=== PATIENT | female | born 1980 | race American Indian/Alaskan Native ===

== ENCOUNTER 2018-11-18 16:27 | Emergency (ER) | payer SELFPAY ==
--- NOTE | 2018-11-18 16:36 | Emergency Department Report ---
Blank Doc - Documentation Documentation: This is a 38-year-old female that presents with acute headache. Also has right hip pain with radiation to right leg. Denies any trauma. This initial assessment/diagnostic orders/clinical plan/treatment(s) is/are subject to change based on patient's health status, clinical progression and re- assessment by fellow clinical providers in the ED. Further treatment and workup at subsequent clinical providers discretion. Patient/guardians urged not to elope from the ED as their condition may be serious if not clinically assessed and managed. Initial orders include: 1- Patient sent to [facility] for further evaluation and treatment 2- CT head
[2018-11-18 16:37] VITALS: BP 126/71
--- NOTE | 2018-11-18 18:01 | Emergency Department Report ---
ED General Adult HPI - General Chief complaint: Headache Stated complaint: HEADACHE/R LEG PAIN Time Seen by Provider: 11/18/18 16:34 Source: patient Mode of arrival: Ambulatory Limitations: No Limitations - History of Present Illness Initial comments: 38-year-old Vietnamese female presents to the emergency room for headache for 5 days. He should also reports that the headache is worse when she yells feels like a band. Patient reports that the pain is worse in the morning. Lying down makes it better. Denies any head trauma. Has been taking ibuprofen 800 mg last dose yesterday. Also complains of right leg throbbing pain is intermittent no swelling, no shortness of breathing. Patient is not a smoker is not on control and has not traveled long distance. Onset/Timin -: days(s) (headache) Location: head, right (thigh), lower extremity Quality: other (throbbing) Improves with: rest Worsens with: other (stress yelling) Associated Symptoms: denies: chest pain, cough, diaphoresis, fever/chills, nausea/vomiting, rash, syncope Treatments Prior to Arrival: NSAID (last dose yesterday) - Related Data Previous Rx's Medication Instructions Recorded Last Taken Type Ibuprofen [Motrin 800 MG tab] 800 mg PO Q8HR PRN #30 tablet 11/18/18 Unknown Rx Prednisone [predniSONE 10 mg 10 mg PO .TAPER #1 tab.ds.pk 11/18/18 Unknown Rx (6-Day Pack, 21 Tabs)] Allergies Allergy/AdvReac Type Severity Reaction Status Date / Time No Known Allergies Allergy Unverified 11/18/18 16:29 ED Review of Systems ROS: Stated complaint: HEADACHE/R LEG PAIN Other details as noted in HPI Comment: All other systems reviewed and negative Constitutional: denies: chills, fever Eyes: denies: eye pain, eye discharge, vision change ENT: denies: ear pain, throat pain Respiratory: denies: cough, shortness of breath, wheezing Cardiovascular: denies: chest pain, palpitations Endocrine: no symptoms reported Gastrointestinal: denies: abdominal pain, nausea, diarrhea Genitourinary: denies: urgency, dysuria, discharge Musculoskeletal: myalgia (right thigh). denies: back pain, joint swelling, arthralgia Skin: denies: rash, lesions Neurological: headache Psychiatric: denies: anxiety, depression Hematological/Lymphatic: denies: easy bleeding, easy bruising ED Past Medical Hx - Past Medical History Previous Medical History?: No - Surgical History Additional Surgical History: C/S x4, wrist - Social History Smoking Status: Never Smoker Substance Use Type: None - Medications Home Medications: Home Medications Medication Instructions Recorded Confirmed Last Taken Type Ibuprofen [Motrin 800 MG tab] 800 mg PO Q8HR PRN #30 tablet 11/18/18 Unknown Rx Prednisone [predniSONE 10 mg 10 mg PO .TAPER #1 tab.ds.pk 11/18/18 Unknown Rx (6-Day Pack, 21 Tabs)] ED Physical Exam - General Limitations: No Limitations General appearance: alert, in no apparent distress - Head Head exam: Present: atraumatic, normocephalic - Eye Eye exam: Present: normal appearance - ENT ENT exam: Present: mucous membranes moist ED Course Vital Signs 11/18/18 11/18/18 16:35 17:25 Temperature 98.4 F Pulse Rate 87 Respiratory 18 17 Rate Blood Pressure 126/71 O2 Sat by Pulse 99 Oximetry ED Medical Decision Making - Radiology Data Radiology results: report reviewed Patient: RACHNA SAXENA MR#: [id number] : 1980 Acct:[id number] Age/Sex: 38 / F ADM Date: 11/18/18 Loc: ED Attending Dr: Ordering Physician: RAOUL WHITFIELD NP Date of Service: 11/18/18 Procedure(s): CT head/brain wo con Accession Number(s): [id number] cc: RAOUL WHITFIELD NP PROCEDURE: CT HEAD/BRAIN WO CON TECHNIQUE: Computerized tomography of the head was performed without contrast material. CT DOSE LENGTH PRODUCT: 920.5 mGycm HISTORY: headache COMPARISONS: None . FINDINGS: No CT evidence of intracranial mass, hemorrhage, acute territorial infarction, or hydrocephalus. Intracranial arteries are symmetric in density. Calvarium is intact. The visualized paranasal sinuses and mastoids are aerated. IMPRESSION: No CT evidence of acute abnormality . This document is electronically signed by Stacie Rodríguez MD., Nov 18 2018 06:24:20 PM ET Transcribed By: [facility] Dictated By: STACIE RODRÍGUEZ M.D. Electronically Authenticated By: STACIE RODRÍGUEZ M.D. Signed Date/Time: 11/18/181825 DD/ 35 TD/TT: 11/18/181735 Critical care attestation.: If time is entered above; I have spent that time in minutes in the direct care of this critically ill patient, excluding procedure time. ED Disposition Clinical Impression: Pain in right thigh Headache Qualifiers: Headache type: tension-type Headache chronicity pattern: acute headache Intractability: intractable Qualified Code(s): G44.201 - Tension-type headache, unspecified, intractable Disposition: DC- TO HOME OR SELFCARE Is pt being admited?: No Does the pt Need Aspirin: No Condition: Stable Additional Instructions: Take medications as prescribed. Follow up with primary care provider I have listed one below for your convenience. Prescriptions: Ibuprofen [Motrin 800 MG tab] 800 mg PO Q8HR PRN #30 tablet PRN Reason: Pain , Severe (7-10) Prednisone [predniSONE 10 mg (6-Day Pack, 21 Tabs)] 10 mg PO .TAPER #1 tab.ds.pk Referrals: DARLEEN RAMIREZ MD [Staff Physician] - 3-5 Days CALVIN CHAPARRO JR, MD [Staff Physician] - 3-5 Days Forms: Work/School Release Form(ED)
--- NOTE | 2018-11-18 18:26 | Cat Scan Report ---
PROCEDURE: CT HEAD/BRAIN WO CON TECHNIQUE: Computerized tomography of the head was performed without contrast material. CT DOSE LENGTH PRODUCT: 920.5 mGycm HISTORY: headache COMPARISONS: None . FINDINGS: No CT evidence of intracranial mass, hemorrhage, acute territorial infarction, or hydrocephalus. Intr acranial arteries are symmetric in density. Calvarium is intact. The visualized paranasal sinuses and mastoids are aerated. IMPRESSION: No CT evidence of acute abnormality . This document is electronically signed by Stacie Rodríguez MD., Nov 18 2018 06:24:20 PM ET
[2018-11-18] MEDS ORDERED: REGLAN IV ONE (18:27)
[2018-11-18] MEDS ORDERED: BENADRYL IV ONE (18:27)
[2018-11-18] MEDS ORDERED: TORADOL IV ONE (18:27)
[2018-11-18 19:27] LABS: HCG Qualitative,Urine Negative (Negative)
[2018-11-18 19:30] LABS: Bilirubin,Urine NEG (Negative); Color,Urine Yellow (Yellow)
[2018-11-18 19:31] LABS: Blood,Urine NEG (Negative); Mucus,Urine FEW /HPF; Protein,Urine <15 mg/dL mg/dL (Negative); Urobilinogen,Urine < 2.0 mg/dL (<2.0); WBC,Urine < 1.0 /HPF (0.0-6.0)
== END 2018-11-18 19:15 | disposition home or self-care (01) ==
LOC: ED 16:27
DX: R51 Headache (principal); M79.651 Pain in right thigh
CPT/HCPCS: 70450; 81001; 81025; 96374; 96375; 99284; J1200; J1885; J2765

== ENCOUNTER 2020-10-06 05:39 | Emergency (ER) | payer MEDICAID ==
[2020-10-06] MEDS ORDERED: ASPIRIN 325 MG TAB PO ONE (05:54)
[2020-10-06 06:23] LABS: Basophils % (Auto) 0.7 % (0.0-1.8); Eosinophils % (Auto) 0.7 % (0.0-4.3); Hematocrit 32.3 % (30.3-42.9); Hemoglobin 10.6 gm/dl (10.1-14.3); Lymphocytes # (Auto) 1.4 K/mm3 (1.2-5.4); Lymphocytes % (Auto) 34.5 % (13.4-35.0); Mean Corpuscular HGB Conc 33 % (30-34); Mean Corpuscular Volume 78 fl (79-97); Monocytes # (Auto) 0.4 K/mm3 (0.0-0.8); Monocytes % (Auto) 10.1 % (0.0-7.3); Platelet Count 380 K/mm3 (140-440); Red Blood Count 4.15 M/mm3 (3.65-5.03); Red Cell Distribution Width 19.1 % (13.2-15.2)
--- NOTE | 2020-10-06 06:43 | XRay Report ---
CHEST 2 VIEWS INDICATION / CLINICAL INFORMATION: chest pain. COMPARISON: None available. FINDINGS: SUPPORT DEVICES: None. HEART / MEDIASTINUM: No significant abnormality. LUNGS / PLEURA: No significant pulmonary or pleural abnormality. No pneumothorax. ADDITIONAL FINDINGS: No significant additional findings. IMPRESSION: 1. No acute findings. Signer Name: Mo Logan MD Signed: 10/06/2020 6:39 AM Workstation Name: [id number]
[2020-10-06 06:48] LABS: Alanine Aminotransferase 11 units/L (7-56); Blood Urea Nitrogen 8 mg/dL (7-17); Calcium 8.8 mg/dL (8.4-10.2); Hemolysis Index 3
[2020-10-06 06:54] LABS: BUN/Creatinine Ratio 16
[2020-10-06] MEDS ORDERED: KETOROLAC 30 MG/1 ML INJ IM ONE (06:54)
--- NOTE | 2020-10-06 06:57 | Emergency Department Report ---
ED Chest Pain HPI - General Chief Complaint: Chest Pain Stated Complaint: CHEST PAIN/LEFT SIDE ARM PAIN Time Seen by Provider: 10/06/20 06:41 Source: patient Mode of arrival: Ambulatory Limitations: No Limitations - History of Present Illness Initial Comments: This is a 40-year-old female who presents to the emergency department with a complaint of some left-sided chest pain with radiation down the left arm that started about 2 hours prior to presentation. She denies any shortness of breath, nausea or vomiting, dizziness, back pain, lower extremity swelling, diaphoresis. Patient also complains of some intermittent left arm paresthesias. She has not taken anything for symptoms prior to presentation. She denies any past medical history. There is no family history of early cardiac disease. No recent travel or sick contacts at home. She denies any tobacco or illicit drug use. No known aggravating or alleviating factors. She currently describes the chest discomfort as a 6 out of 10 in intensity and sharp in nature. Severity scale (0 -10): 7 - Related Data Previous Rx's Medication Instructions Recorded Last Taken Type Ibuprofen [Motrin 800 MG tab] 800 mg PO Q8HR PRN #30 tablet 11/18/18 Unknown Rx Prednisone [predniSONE 10 mg 10 mg PO .TAPER #1 tab.ds.pk 11/18/18 Unknown Rx (6-Day Pack, 21 Tabs)] Ibuprofen [Motrin 800 MG tab] 800 mg PO Q8HR PRN #20 tablet 10/06/20 Unknown Rx Allergies Allergy/AdvReac Type Severity Reaction Status Date / Time No Known Allergies Allergy Verified 10/06/20 06:42 Heart Score - HEART Score History: Slightly suspicious EKG: Normal Age: < 45 Risk factors: No known risk factors Troponin: < normal limit HEART Score: 0 - EKG Read Time Time EKG Completed: 05:59 EKG Read Time: 06:06 - Critical Actions Critical Actions: 0-3 pts:0.9-1.7%risk of adverse cardiac event.Candidate for discharge ED Review of Systems ROS: Stated complaint: CHEST PAIN/LEFT SIDE ARM PAIN Other details as noted in HPI Comment: All other systems reviewed and negative Constitutional: denies: chills, fever Eyes: denies: eye pain, vision change ENT: denies: ear pain, throat pain Respiratory: denies: cough, shortness of breath Cardiovascular: chest pain. denies: palpitations Gastrointestinal: denies: abdominal pain, vomiting Genitourinary: denies: dysuria, discharge Musculoskeletal: myalgia. denies: back pain Skin: denies: rash, lesions Neurological: paresthesias. denies: headache ED Past Medical Hx - Past Medical History Previous Medical History?: No - Surgical History Past Surgical History?: Yes Additional Surgical History: C/S x4, wrist - Social History Smoking Status: Never Smoker - Medications Home Medications: Home Medications Medication Instructions Recorded Confirmed Last Taken Type Ibuprofen [Motrin 800 MG tab] 800 mg PO Q8HR PRN #30 tablet 11/18/18 Unknown Rx Prednisone [predniSONE 10 mg 10 mg PO .TAPER #1 tab.ds.pk 11/18/18 Unknown Rx (6-Day Pack, 21 Tabs)] Ibuprofen [Motrin 800 MG tab] 800 mg PO Q8HR PRN #20 tablet 10/06/20 Unknown Rx ED Physical Exam - General Limitations: No Limitations - Other Other exam information: GENERAL: The patient is well-developed well-nourished. HENT: Normocephalic. Atraumatic. Patient has moist mucous membranes. EYES: Extraocular motions are intact. NECK: Supple. Trachea is midline. CHEST/LUNGS: Clear to auscultation. There is no respiratory distress noted. HEART/CARDIOVASCULAR: Regular. There is no tachycardia. There is no murmur. ABDOMEN: Abdomen is soft, nontender. Patient has normal bowel sounds. Obese habitus. SKIN: Skin is warm and dry. NEURO: The patient is awake, alert, and oriented. The patient is cooperative. The patient has no focal neurologic deficits. Normal speech. MUSCULOSKELETAL: There is no tenderness or deformity. There is no limitation range of motion. Radial pulse +2/4 and capillary refill less than 2 seconds to the affected left upper extremity. ED Course Vital Signs 10/06/20 10/06/20 10/06/20 05:52 06:23 06:46 Temperature 97.5 F L Pulse Rate 94 H 93 H Respiratory 18 18 15 Rate Blood Pressure 130/64 O2 Sat by Pulse 98 100 Oximetry 10/06/20 10/06/20 10/06/20 07:00 08:00 08:16 Temperature Pulse Rate 92 H 85 86 Respiratory 15 14 9 L Rate Blood Pressure 120/72 128/71 O2 Sat by Pulse 99 100 100 Oximetry 10/06/20 10/06/20 10/06/20 08:30 08:46 09:00 Temperature Pulse Rate 86 80 76 Respiratory 18 11 L 25 H Rate Blood Pressure 128/71 132/68 132/68 O2 Sat by Pulse 100 100 100 Oximetry 10/06/20 10/06/20 10/06/20 09:16 09:30 10:23 Temperature Pulse Rate 84 77 Respiratory 22 17 16 Rate Blood Pressure 131/69 131/69 O2 Sat by Pulse 99 100 Oximetry MARKIE score - Markie Score Age > 65: (0) No Aspirin use within the Past 7 Days: (0) No 3 or more CAD Risk Factors: (0) No 2 or more Angina events in past 24 hrs: (1) Yes Known CAD with more than 50% Stenosis: (0) No Elevated Cardiac Markers: (0) No ST Deviation Greater than 0.5mm: (0) No MARKIE Score: 1 ED Medical Decision Making - Lab Data Result diagrams: 10/06/20 06:03 10/06/20 06:03 - EKG Data -: EKG Interpreted by Me EKG shows normal: sinus rhythm, axis, intervals, QRS complexes, ST-T waves Rate: normal - EKG Data When compared to previous EKG there are: previous EKG unavailable Interpretation: normal EKG - Radiology Data Radiology results: image reviewed interpreted by me: Chest x-ray does not show any acute process. There are no pleural effusions, obvious pneumonia and there is no pneumothorax. No significant cardiomegaly. - Medical Decision Making This patient presents to the emergency department with a complaint of some left- sided chest pain with radiation down the left arm that started this morning about 1 to 2 hours prior to arrival. Heart and lung sounds are normal to auscultation. The patient does not appear in any respiratory or acute distress. EKG does not have any morphology consistent with ST elevation myocardial infarction or any dysrhythmia. Chest x-ray does not show any pneumonia, pleural effusions, pneumothorax, or any other acute process. The patient's labs have been unremarkable including CBC, metabolic panel, normal thyroid function, and a negative troponin. The patient was reevaluated multiple times over multiple hours and says she is feeling improved. The chest pain is completely resolved. She does have some localized left upper arm pain. No sign of any rash, skin color change, swelling and the patient is neurovascularly intact. There has been no trauma to the area. Vital signs have been reassuring throughout her ED course. For all these reasons the patient appears safe for discharge home at this time. Her contact information has been sent over to the [facility] vascular squire, and someone from their office should be contacting her shortly for close outpatient follow-up as per our [facility] low risk chest pain protocol. She will return to the emergency department with any worsening of her symptoms or with any acute distress. Critical Care Time: No Critical care attestation.: If time is entered above; I have spent that time in minutes in the direct care of this critically ill patient, excluding procedure time. ED Disposition Clinical Impression: Left arm pain Chest pain Qualifiers: Chest pain type: unspecified Qualified Code(s): R07.9 - Chest pain, unspecified Disposition: TO HOME OR SELFCARE Is pt being admited?: No Condition: Stable Instructions: Nonspecific Chest Pain, Adult Additional Instructions: Please follow-up with a primary care physician in the next few days. I have sent your contact information over to the [facility] vascular squire, and someone from their office should be contacting you shortly for close outpatient follow-up. Just in case, I have given you a referral for one of their sales record clerk, Dr. Davis. Return to the emergency department with any worsening of your symptoms, new or concerning symptoms not addressed during this current emergency department visit, or with any acute distress. Prescriptions: Ibuprofen [Motrin 800 MG tab] 800 mg PO Q8HR PRN #20 tablet PRN Reason: Pain , Severe (7-10) Referrals: MINOR DAVIS MD [Staff Physician] - 2-3 Days PRIMARY CARE, [Primary Care Provider] - 2-3 Days Time of Disposition: 09:45
[2020-10-06 09:39] VITALS: BP 131/69
[2020-10-06] MEDS ORDERED: IBUPROFEN 800 MG TAB PO ONE (09:41)
--- NOTE | 2020-10-06 11:32 | Electrocardiograph Report ---
[facility] Test Date: 2020-10-06 Test Time: 05:59:37 Pat Name: RACHNA SAXENA Department: Room: Gender: F [employer]: BELLE : 1980 Requested By: CECI FOURNIER Order Number: [id number] Reading MD: Manuelito Davis Measurements Intervals [place] Rate: 84 P: 78 [place]: 155 QRS: 57 QRSD: 78 T: -7 QT: 368 QTc: 436 Interpretive Statements Sinus rhythm Right atrial enlargement No previous ECG available for comparison Electronically Signed On 10-06-2020 11:32:30 EDT by Manuelito Davis
== END 2020-10-06 10:37 | disposition home or self-care (01) ==
LOC: ED 05:39
DX: R07.89 Other chest pain (principal); M79.602 Pain in left arm; Z98.890 Other specified postprocedural states; Z79.1 Long term (current) use of non-steroidal anti-inflammatories (NSAID); Z79.899 Other long term (current) drug therapy
CPT/HCPCS: 36415; 71046; 80053; 84443; 84484; 85025; 93005; 99284; J1885